=== PATIENT | male | born 2000 | race Caucasian/White ===

== ENCOUNTER 2019-08-19 17:57 | Emergency (ER) | payer BC ==
--- OUTSIDE RECORDS SUMMARY | 2019-08-19 18:00 | XMS REPORT | Continuity of Care Document ---
:[address] [facility] t Address [address] Brown [address] [place] [id number] Care Team Providers Name Role Phone Unavailable Unavailable Unavailable Problems This patient has no known problems. Allergies, Adverse Reactions, Alerts This patient has no known allergies or adverse reactions. Medications This patient has no known medications. Procedures This patient has no known procedures. Results This patient has no known results.
[2019-08-19] MEDS ORDERED: LIDOCAINE 1% MPF 30 ML VIAL ONE (19:42)
--- NOTE | 2019-08-19 20:56 | ER ---
Nurse's Notes [facility] Name: Mor Larson Age: 19 yrs Sex: Male : 2000 Arrival Date: 08/19/2019 Time: 17:59 Bed 11 Private MD: Diagnosis: Laceration without foreign body of left index finger without damage to nail Presentation: 08/18 18:35 Chief complaint: Patient states: Cutting a corn, looked away, cut my 2nd digit of L ca1 hand. Bleeding controlled. Coronavirus screen: Proceed with normal triage. Patient denies a cough. Patient denies shortness of breath or difficulty breathing. Patient denies measured and/or subjective temperature greater than 100.4F prior to today's visit. Patient denies travel on a cruise ship or to a country the [facility] currently lists as an affected area. Patient denies contact with known and/or suspected case of COVID-19. Ebola Screen: Patient negative for fever greater than or equal to 101.5 degrees Fahrenheit, and additional compatible Ebola Virus Disease symptoms Patient denies exposure to infectious person. Patient denies travel to an Ebola-affected area in the 21 days before illness onset. No symptoms or risks identified at this time. Initial Sepsis Screen: Does the patient meet any 2 criteria? No. Patient's initial sepsis screen is negative. Does the patient have a suspected source of infection? No. Patient's initial sepsis screen is negative. Risk Assessment: Do you want to hurt yourself or someone else? Patient reports no desire to harm self or others. Onset of symptoms was August 19, 2019. 18:35 Method Of Arrival: Ambulatory ca1 18:35 Acuity: AARON 4 ca1 Historical: - Allergies: 18:37 No Known Allergies; ca1 - Home Meds: 18:37 None [Active]; ca1 - PMHx: 18:37 None; ca1 - PSHx: 18:37 None; ca1 - Immunization history:: Adult Immunizations up to date, Last tetanus immunization: unknown. - Social history:: Smoking status: Patient denies any tobacco usage or history of. Assessment: 19:38 General: Appears in no apparent distress. well groomed, well developed, well nourished, sg Behavior is calm, cooperative, appropriate for age. Pain: Complains of pain in left index finger Quality of pain is described as throbbing. Neuro: Level of Consciousness is awake, alert, obeys commands, Oriented to person, place, time, Speech is normal, Facial symmetry appears normal. Cardiovascular: Patient's skin is warm and dry. Chest pain is denied. Respiratory: Airway is patent Respiratory effort is even, unlabored, Respiratory pattern is regular, symmetrical. GI: No signs and/or symptoms were reported involving the gastrointestinal system. : No signs and/or symptoms were reported regarding the genitourinary system. EENT: No signs and/or symptoms were reported regarding the EENT system. Derm: Skin is pink, warm \T\ dry. Musculoskeletal: Circulation, motion, and sensation intact. Range of motion: intact in all extremities. Injury Description: Laceration sustained to left index finger is clean, 0.5 to 2.5 cm long, not bleeding, is bleeding a small amount. 21:19 Reassessment: Patient appears in no apparent distress at this time. Patient is alert, ca1 oriented x 3, equal unlabored respirations, skin warm/dry/pink. Vital Signs: 18:35 BP 124 / 61; Pulse 70; Resp 16 S; Temp 97.4(TE); Pulse Ox 98% on R/A; Weight 97.52 kg ca1 (R); Height 5 ft. 10 in. (177.80 cm) (R); 21:19 BP 118 / 76; Pulse 76; Resp 15 S; Pulse Ox 99% on R/A; ca1 18:35 Body Mass Index 30.85 (97.52 kg, 177.80 cm) ca1 ED Course: 17:59 Patient arrived in ED. as 18:37 Triage completed. ca1 18:37 Arm band placed on right wrist. ca1 19:23 Faizan Soto PA is PHCP. cp 19:23 Stacy Canales MD is Attending Physician. cp 19:25 Gabe Catalan, JOSE M is Primary Nurse. sg 20:55 Assist provider with laceration repair on left index finger that was between 2.6 to 7.5 ca1 cm using sutures. Set up tray. Performed by Faizan LINDA Dressed with 4X4s, Neosporin, Patient tolerated well. Aluminum finger splint applied to left index finger. 21:16 Patient did not have IV access during this emergency room visit. 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 Exp: ca1 04/07/2021. Lot #: [id number]. } Route: IM; Site: left deltoid; Outcome: 20:55 Discharge ordered by MD. rose 21:20 Discharged to home ambulatory. ca1 21:20 Condition: stable 21:20 Discharge instructions given to patient, Instructed on discharge instructions, follow up and referral plans. wound care, Demonstrated understanding of instructions, follow-up care, wound care. 21:20 Patient left the ED. ca1 Signatures: Gabe Catalan, RN RN Rosemarie Schaffer Corey, PA PA cp Acob, Cheryl RN RN ca1
--- NOTE | 2019-08-19 20:56 | EDPHYS ---
Physician Documentation [facility] Name: Mor Larson Age: 19 yrs Sex: Male : 2000 Arrival Date: 08/19/2019 Time: 17:59 Bed 11 Private MD: ED Physician Stacy Canales HPI: 08/18 19:45 This 19 yrs old Male presents to ER via Ambulatory with complaints of cp Laceration - finger. 19:45 The patient or guardian reports a laceration, irregular. The complaints affect the left cp index finger [place] side distal phalanx. 19:45 Context: The problem was sustained at home. Onset: The symptoms/episode began/occurred cp just prior to arrival. Associated signs and symptoms: Pertinent negatives: cyanosis distally, decreased sensation distally. 19:45 Patient reports using knife to cut corn when he accidently cut left index finger. cp Historical: - Allergies: 18:37 No Known Allergies; ca1 - Home Meds: 18:37 None [Active]; ca1 - PMHx: 18:37 None; ca1 - PSHx: 18:37 None; ca1 - Immunization history:: Adult Immunizations up to date, Last tetanus immunization: unknown. - Social history:: Smoking status: Patient denies any tobacco usage or history of. ROS: 19:55 Skin: Positive for laceration(s), of the left index finger. cp 19:55 Constitutional: Negative for fever. cp 19:55 Cardiovascular: Negative for chest pain. cp 19:55 Respiratory: Negative for cough. 19:55 Neuro: Negative for numbness. 19:55 All other systems are negative. Exam: 20:00 Constitutional: The patient appears in no acute distress, alert, awake, well developed, cp well nourished. 20:00 Head/Face: Normocephalic, atraumatic. cp 20:00 Cardiovascular: Rate: normal. 20:00 Respiratory: the patient does not display signs of respiratory distress, Respirations: normal. 20:00 Musculoskeletal/extremity: Exam is negative for bony tenderness, ROM: full active range of motion, in the left index finger, Perfusion: the extremity is normally perfused throughout, Sensation intact. Tendon exam: specific tendon testing normal through active and passive range of motion 20:00 Skin: injury, laceration(s), the wound is approximately 3 cm(s), of the left index finger [place] side distal phalanx, that can be described as clean, no foreign body, irregular, with mild bleeding. Vital Signs: 18:35 BP 124 / 61; Pulse 70; Resp 16 S; Temp 97.4(TE); Pulse Ox 98% on R/A; Weight 97.52 kg ca1 (R); Height 5 ft. 10 in. (177.80 cm) (R); 21:19 BP 118 / 76; Pulse 76; Resp 15 S; Pulse Ox 99% on R/A; ca1 18:35 Body Mass Index 30.85 (97.52 kg, 177.80 cm) ca1 Laceration: 20:54 Wound Repair of 3cm ( 1.2in ) subcutaneous laceration to left index finger. Irregularly cp shaped.. Distal neuro/vascular/tendon intact. Anesthesia: Wound infiltrated with 4 mls of 1% lidocaine. Wound prep: Moderate cleansing by me, Wound irrigation by me. Skin closed with 10 5-0 Prolene using simple sutures and sterile technique. Dressed with Bacitracin, non-adherent dressing, finger splint. Patient tolerated well. MDM: 19:26 Patient medically screened. cp 20:00 Differential diagnosis: open fracture, closed fracture, simple laceration, tendon cp injury. 20:54 Data reviewed: vital signs, nurses notes, and as a result, I will discharge patient. cp 20:55 Response to treatment: the patient's symptoms have markedly improved after treatment, cp and as a result, I will discharge patient. 08/18 19:27 Order name: Prolene, Sutures; Complete Time: 19:36 cp 08/18 19:27 Order name: Dressing - Wound; Complete Time: 19:36 cp 08/18 19:27 Order name: Gloves, Sterile; Complete Time: 19:36 cp 08/18 19:27 Order name: Setup Suture Tray; Complete Time: 19:36 cp 08/18 20:53 Order name: Finger Splint; Complete Time: 20:59 cp 08/18 20:53 Order name: Wound dressing; Complete Time: 20:59 cp Administered Medications: 19:36 Drug: Lidocaine (1 %) 10 ml {Note: medication administered by Zach LINDA for laceration sg repair.} Volume: 20 ml; Route: Infiltration; 21:00 Drug: Tetanus-Diphtheria Toxoid Adult 0.5 ml {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 Exp: ca1 04/07/2021. Lot #: [id number]. } Route: IM; Site: left deltoid; Disposition: 21:20 Chart complete. milton 08/19 02:27 Co-signature as Attending Physician, Stacy Canales MD. ma2 Disposition: 08/19/19 20:55 Discharged to Home. Impression: Laceration without foreign body of left index finger without damage to nail. - Condition is Stable. - Discharge Instructions: Laceration Care, Adult. - Medication Reconciliation Form, Thank You Letter, Antibiotic Education, Prescription Opioid Use form. - Follow up: Private Physician; When: 7 - 10 days; Reason: Staple/Suture removal. - Problem is new. - Symptoms have improved. Signatures: Gabe Catalan RN Faizan Peters PA PA cp Alzahri, Mohammad, MD MD ma2 Chelle Salguero RN RN ca1 Corrections: (The following items were deleted from the chart) 08/18 21:20 20:55 08/19/2019 20:55 Discharged to Home. Impression: Laceration without foreign body ca1 of left index finger without damage to nail. Condition is Stable. Forms are Medication Reconciliation Form, Thank You Letter, Antibiotic Education, Prescription Opioid Use. Follow up: Private Physician; When: 7 - 10 days; Reason: Staple/Suture removal. Problem is new. Symptoms have improved. cp
[2019-08-19] MEDS ORDERED: TETANUS & DIPHTHERIA TOX,ADULT 0.5 ML VIAL ONE (21:12)
[2019-08-19 21:24] VITALS: TEMP 97.4
[2019-08-19 21:25] VITALS: BP 118/76; O2SAT 99
== END 2019-08-19 21:20 | disposition home or self-care (01) ==
LOC: ER 17:57
PROC: 0JQK0ZZ Repair Left Hand Subcutaneous Tissue and Fascia, Open Approach (ICD-10-PCS; principal; 2019-08-19)
DX: S61.211A Laceration without foreign body of left index finger without damage to nail, initial encounter (principal); W26.0XXA Contact with knife, initial encounter; Y93.G1 Activity, food preparation and clean up; Y92.000 Kitchen of unspecified non-institutional (private) residence as the place of occurrence of the external cause; Z23 Encounter for immunization
CPT/HCPCS: 90471; 90714; 99283